=== PATIENT | female | born 1980 | race Caucasian/White ===

== ENCOUNTER → 2021-08-11 | Outpatient (CLI) | payer BC ==
--- NOTE | 2021-08-12 11:37 | MM ---
Reason for exam: screening (asymptomatic). Last mammogram was performed 8 years and 2 months ago. History: Family history of breast cancer in maternal aunt at age 39 and breast cancer in paternal grandmother. Physical Findings: A clinical breast exam by your physician is recommended on an annual basis and results should be correlated with mammographic findings. MG Screening Mammo w CAD Bilateral CC, MLO, and XCCL view(s) were taken. Prior study comparison: May 27, 2013, CAD bilateral diagnostic mammogram. The breast tissue is heterogeneously dense. This may lower the sensitivity of mammography. Benign appearing calcifications in the left breast. There is asymmetric density in the right outer central breast. ASSESSMENT: Incomplete: need additional imaging evaluation, BI-RAD 0 RECOMMENDATION: Special view mammogram of the right breast. If lesion persists on supplemental views, image directed ultrasound is recommended. [facility] will attempt to contact patient to return for supplemental views and ultrasound if indicated.
== END | disposition home or self-care (01) ==
LOC: RADMAMWWP 07-04 08:38
PROVIDERS: ATTEND Internal Medicine
DX: Z12.31 Encounter for screening mammogram for malignant neoplasm of breast (principal); Z80.3 Family history of malignant neoplasm of breast
CPT/HCPCS: 77067

== ENCOUNTER → 2021-08-22 | Outpatient (CLI) | payer BC ==
--- NOTE | 2021-08-22 08:53 | MM ---
Reason for exam: additional evaluation requested from abnormal screening. Last mammogram was performed less than 1 month ago. History: Family history of breast cancer in maternal aunt at age 39 and breast cancer in paternal grandmother. Physical Findings: Nurse did not find any significant physical abnormalities on exam. MG 3D Work Up W/Cad RT Spot compression CC, spot compression MLO, spot compression XCCL, and LM view(s) were taken of the right breast. Prior study comparison: August 11, 2021, bilateral MG screening mammo w CAD. May 27, 2013, CAD bilateral diagnostic mammogram. There are scattered fibroglandular densities. Asymmetries resolved with compression and are unchanged since 2012. These results were verbally communicated with the patient and result sheet given to the patient on 08/22/21. ASSESSMENT: Negative, BI-RAD 1 RECOMMENDATION: Return to routine screening mammogram schedule for both breasts.
== END | disposition home or self-care (01) ==
LOC: RADMAMWWP 07:41
PROVIDERS: ATTEND Internal Medicine
DX: R92.2 Inconclusive mammogram (principal); Z80.3 Family history of malignant neoplasm of breast
CPT/HCPCS: 77061; 77065

== ENCOUNTER → 2024-04-22 | Outpatient (CLI) | payer BC ==
--- NOTE | 2024-04-24 11:43 | MM ---
Reason for Exam: Screening (asymptomatic). Last mammogram was performed 2 year(s) and 8 month(s) ago. Patient History: Menarche at age 9. First Full-Term at age 19. Premenopausal. Paternal grandmother had breast cancer. Maternal aunt had breast cancer, age 39. Risk Values: Beulah 5 year model risk: 0.8%. NCI Lifetime model risk: 9.4%. Prior Study Comparison: 05/27/2013 Bilateral Diagnostic Mammogram, [facility]. 08/11/2021 Bilateral Screening Mammogram, [facility]. 08/22/2021 Right Diagnostic Mammogram, [facility]. Tissue Density: The breasts are heterogeneously dense, which may obscure small masses. Findings: Analyzed By CAD. Right breast: There is no suspicious group of microcalcifications or new suspicious mass. Left breast: There is no suspicious group of microcalcifications or new suspicious mass. Overall Assessment: Negative, BI-RAD 1 Management: Screening Mammogram of both breasts in [address] [facility] will attempt to contact patient to return for supplemental views and ultrasound if indicated. Patient should continue monthly self-breast exams. A clinical breast exam by your physician is recommended on an annual basis. This exam should not preclude additional follow-up of suspicious palpable abnormalities. Note on Beulah scores and lifetime risk: 1. A Beulah score greater than 3% is considered moderate risk. If this is the case, consider specialist referral to assess eligibility for a risk reducing agent. 2. If overall lifetime risk for the development of breast cancer is 20% or higher, the patient may qualify for future screening with alternating mammogram and breast MRI. Electronically signed and approved by: José Miguel Shukla DO
== END | disposition home or self-care (01) ==
LOC: RADMAMWWP 11:11
PROVIDERS: ATTEND Internal Medicine
DX: Z12.31 Encounter for screening mammogram for malignant neoplasm of breast (principal); Z80.3 Family history of malignant neoplasm of breast
CPT/HCPCS: 77063; 77067